=== PATIENT | female | born 1925 | race Caucasian/White ===

== ENCOUNTER 2017-03-22 12:20 | Observation (INO) | payer BC, OTHER ==
--- NOTE | 2017-03-22 12:28 | PDOC ---
History of Present Illness - General Chief Complaint: Pain Stated Complaint: URINARY SX, BACK PAIN, ABD PAIN Time Seen by Provider: 03/22/17 12:28 History Source: Patient, Care Provider, Family Exam Limitations: No Limitations - History of Present Illness Initial Comments: 03/22/17 16:16 89 yo female not feeling well c/o diffuse abdominal pain since Thanksgiving dinner. Most of her pain is epigastric but her belly hurts all over. She also noticed black stools and hematuria. Timing/Duration: 24 hours Severity: mild Modifying Factors: worse with: cold therapy, eating, immobilization, medication , movement, rest, other Associated Symptoms: denies: denies symptoms, chest pain, cough, diaphoresis, fever/chills, headaches, loss of appetite, malaise, nausea/vomiting, rash, seizure, shortness of breath, syncope, weakness, other Past History - Past Medical History Allergies/Adverse Reactions: Allergies Allergy/AdvReac Type Severity Reaction Status Date / Time No Known Allergies Allergy Verified 03/22/17 12:23 Home Medications: Ambulatory Orders Furosemide [Lasix -] 40 mg PO DAILY 10/23/12 Salmeterol/Fluticasone [Advair 250Mcg/50Mcg -] 1 inh IH BID 10/23/12 Calcium Acetate [Phoslo -] 667 mg PO DAILY 02/01/16 Escitalopram Oxalate [Lexapro -] 10 mg PO DAILY 02/01/16 Insulin Lispro [Humalog Kwikpen U-100] 0 unit SQ BID 02/01/16 Latanoprost 0.005% Eye Drops [Xalatan 0.005% Eye Drops -] 1 drop OU HS 02/01/16 Oxybutynin Chloride [Oxybutynin Chloride ER] 5 mg PO DAILY 02/01/16 Oxycodone HCl/Acetaminophen [Oxycodone-Acetaminophen 5-325] 1 each PO ASDIR PRN 02/01/16 Simvastatin 20 mg PO DAILY 02/01/16 Venlafaxine HCl ER [Effexor Xr -] 75 mg PO DAILY 02/01/16 Cardiac Disorders: Yes (ANGINA) CHF: Yes Diabetes: Yes GI Disorders: Yes (POLYPS(COLONIC)) - Suicide/Smoking/Psychosocial Hx Smoking Status: No Smoking History: Never smoked Have you smoked in the past 12 months: No Number of Cigarettes Smoked Daily: 0 Hx Alcohol Use: No Drug/Substance Use Hx: No Substance Use Type: None Hx Substance Use Treatment: No Review of Systems - Review of Systems Able to Perform ROS?: Yes Is the patient limited French proficient: No Constitutional: Yes: See HPI HEENTM: No: Symptoms Reported Respiratory: No: Symptoms reported Cardiac (ROS): No: Symptoms Reported ABD/GI: Yes: See HPI : Yes: See HPI Musculoskeletal: No: Symptoms Reported Integumentary: No: Symptoms Reported Neurological: No: Symptoms reported Psychiatric: No: Anxiety, Depression Endocrine: No: Symptoms Reported Hematologic/Lymphatic: No: Symptoms Reported All Other Systems: Reviewed and Negative *Physical Exam - Physical Exam General Appearance: Yes: Mild Distress HEENT: positive: Normal ENT Inspection, Normal Voice Neck: positive: Supple, Other (No JVD). negative: Lymphadenopathy (R), Lymphadenopathy (L) Respiratory/Chest: positive: Lungs Clear, Normal Breath Sounds Cardiovascular: positive: Regular Rhythm, Regular Rate. negative: Murmur Gastrointestinal/Abdominal: positive: Tender, Distended Rectal Exam: positive: heme negative stool Lymphatic: negative: Adenopathy, Tenderness Musculoskeletal: positive: Normal Inspection. negative: CVA Tenderness (R), CVA Tenderness (L) Extremity: positive: Normal Capillary Refill, Normal Inspection, Normal Range of Motion Integumentary: positive: Normal Color, Dry, Warm Neurologic: positive: Fully Oriented, Alert ED Treatment Course - LABORATORY CBC & Chemistry Diagram: 03/22/17 13:10 03/22/17 13:10 *DC/Admit/Observation/Transfer Diagnosis at time of Disposition: Gallstones, Positive Obando's Sign Hematuria Qualifiers: Hematuria type: gross Qualified Code(s): R31.0 - Gross hematuria Abdominal pain Qualifiers: Abdominal location: generalized Qualified Code(s): R10.84 - Generalized abdominal pain - Discharge Dispostion Condition at time of disposition: Stable Admit: Yes - Referrals Referrals: Jeffy Ball MD [Primary Care Provider] - - Patient Instructions - Post Discharge Activity
[2017-03-22 13:25] LABS: BASOPHIL 0.3 % (0-2.0); EOSINOPHIL 1.2 % (0-4.5); MCH 27.5 pg (25.7-33.7); MCHC 32.2 g/dl (32.0-36.0); MEAN CELL VOLUME 85.4 fl (80-96); MEAN PLT VOLUME 9.2 fl (7.5-11.1); NEUTROPHILS 77.2 % (42.8-82.8); PLATELET COUNT 249 K/MM3 (134-434); RDW 12.2 % (11.6-15.6); WHITE BLOOD COUNT 8.6 K/mm3 (4.0-10.8)
[2017-03-22 13:47] LABS: ALBUMIN 3.7 g/dl (3.5-5.0); ALK PHOS 75 U/L (32-92); ANION GAP 10 (8-16); BILIRUBIN,TOTAL 0.4 mg/dl (0.2-1.0); CALCIUM 9.4 mg/dl (8.4-10.2); CO2 23 mmol/L (22-28); CREATININE 1.5 mg/dl (0.6-1.3); GLUCOSE,RANDOM 228 mg/dl (74-106); SGOT/AST 21 U/L (10-42); SGPT/ALT 22 U/L (10-40); TOT PROT 6.6 g/dl (6.4-8.3)
[2017-03-22] MEDS ORDERED: HEMOQUE TEST 1 EACH EACH ONE (13:53)
[2017-03-22 14:09] LABS: INR 1.16 (0.82-1.09); PROTHROMBIN TIME (PATIENT) 12.9 SEC (10.2-13.0)
[2017-03-22 15:11] LABS: PH,URINE 5.5 (4.5-8); URINE APPEARANCE Clear; URINE BILIRUBIN Negative (NEGATIVE); URINE GLUCOSE (UA) Negative (NEGATIVE); URINE KETONE Negative (NEGATIVE); URINE LEUK ESTERASE Negative (NEGATIVE); URINE NITRITE Negative (NEGATIVE); URINE UROBILINOGEN 0.2 (0.2-1.0)
[2017-03-22 15:16] LABS: URINE BLOOD 1+ (NEGATIVE); URINE COLOR YELLOW; URINE PROTEIN 2+ (NEGATIVE)
[2017-03-22] MEDS ORDERED: morphine CARPU-JECT 4 MG/1 ML DISP.SYRIN IVPUSH ONE (15:49)
[2017-03-22] MEDS ORDERED: ONDANSETRON 4 MG/2 ML VIAL IVPUSH ONE (15:49)
[2017-03-22] MEDS ORDERED: ONDANSETRON 4 MG/2 ML VIAL ONE (15:59)
[2017-03-22] MEDS ORDERED: morphine SULFATE 4 MG/ML VIAL ONE (15:59)
[2017-03-22 17:50] VITALS: BMI 32.9
[2017-03-22 18:32] LABS: URINE WBC 0-3 (0-5)
[2017-03-22] MEDS ORDERED: SODIUM CHLORIDE 1,000 ML IV SCH (19:00)
--- NOTE | 2017-03-22 19:57 | HP ---
CHIEF COMPLAINT: "You are not feeding me." PCP: Dr. Ball HISTORY OF PRESENT ILLNESS: 89 year-old female with a PMH significant for IDDM, CKD, internal hemorrhoids, and bipolar disorder. Brought to the ED by her daughter as patient reporting diffuse abdominal pain since Thanksgiving dinner. Patient states an episode of "black," well-formed stool this morning. Daughter reports blood in patient's urine, but on further questioning, daughter observed bright red blood on chux pad underneath patient in bed. The patient's urine was yellow. Patient and daughter (both poor historians) deny patient has had nausea, vomiting, diarrhea , or constipation. They deny fever, sweats, chills. Deny chest pain, SOB, palpitations, HUNTER, or lower extremity edema. Daughter states patient has had generalized weakness for 2 weeks. Daughter states patient has suffered from "manic depression" for over 50 years. Saw a psychiatrist for years but never seemed to help. Patient has regularly scheduled appointment with PCP Dr. Ball on Saturday. ER course was notable for: (1) Cr 1.5 (baseline 1.4) (2) Stool occult negative Recent Travel: No PAST MEDICAL HISTORY: IDDM CKD Internal hemorrhoids Bipolar disorder PAST SURGICAL HISTORY: None reported Social History: Smoking: no Alcohol: no Drugs: no Family History: non-contributory Allergies No Known Allergies Allergy (Verified 03/22/17 12:23) HOME MEDICATIONS: Home Medications Medication Instructions Recorded Furosemide [Lasix -] 40 mg PO DAILY 10/23/12 Salmeterol/Fluticasone [Advair 1 inh IH BID 10/23/12 250Mcg/50Mcg -] Calcium Acetate [Phoslo -] 667 mg PO DAILY 02/01/16 Escitalopram Oxalate [Lexapro -] 10 mg PO DAILY 02/01/16 Insulin Lispro [Humalog Kwikpen 0 unit SQ BID 02/01/16 U-100] Latanoprost 0.005% Eye Drops 1 drop OU HS 02/01/16 [Xalatan 0.005% Eye Drops -] Oxybutynin Chloride [Oxybutynin 5 mg PO DAILY 02/01/16 Chloride ER] Oxycodone HCl/Acetaminophen 1 each PO ASDIR PRN 02/01/16 [Oxycodone-Acetaminophen 5-325] Simvastatin 20 mg PO DAILY 02/01/16 Venlafaxine HCl ER [Effexor Xr -] 75 mg PO DAILY 02/01/16 REVIEW OF SYSTEMS CONSTITUTIONAL: Absent: fever, chills, diaphoresis, generalized weakness, malaise, loss of appetite, weight change HEENT: Absent: rhinorrhea, nasal congestion, throat pain, throat swelling, difficulty swallowing, mouth swelling, ear pain, eye pain, visual changes CARDIOVASCULAR: Absent: chest pain, syncope, palpitations, irregular heart rate, lightheadedness , peripheral edema RESPIRATORY: Absent: cough, shortness of breath, dyspnea with exertion, orthopnea, wheezing, stridor, hemoptysis GASTROINTESTINAL: Present: abdominal discomfort x 1 day Absent: abdominal distension, nausea, vomiting, diarrhea, constipation, melena, hematochezia GENITOURINARY: Absent: dysuria, frequency, urgency, hesitancy, hematuria, flank pain, genital pain MUSCULOSKELETAL: Absent: myalgia, arthralgia, joint swelling, back pain, neck pain SKIN: Absent: rash, itching, pallor HEMATOLOGIC/IMMUNOLOGIC: Absent: easy bleeding, easy bruising, lymphadenopathy, frequent infections ENDOCRINE: Absent: unexplained weight gain, unexplained weight loss, heat intolerance, cold intolerance NEUROLOGIC: Absent: headache, focal weakness or paresthesias, dizziness, unsteady gait, seizure, mental status changes, bladder or bowel incontinence PSYCHIATRIC: Present: puma/depression x 50 years per daughter Absent: anxiety, depression, suicidal or homicidal ideation, hallucinations. PHYSICAL EXAMINATION Vital Signs - 24 hr 03/22/17 03/22/17 03/22/17 12:20 17:10 17:42 Temperature 98.7 F 98.1 F Pulse Rate 93 H Pulse Rate [ 79 Left Apical] Respiratory 18 16 16 Rate Blood Pressure 133/89 Blood Pressure 153/88 [Right Arm] O2 Sat by Pulse 97 96 96 Oximetry (%) GENERAL: Awake, alert, in no acute distress. HEAD: Normal with no signs of trauma. EYES: Pupils equal, round and reactive to light, extraocular movements intact, sclera anicteric, conjunctiva clear. Right ptosis. EARS, NOSE, THROAT: Ears normal, nares patent, oropharynx clear without exudates. Moist mucous membranes. NECK: Normal range of motion, supple without lymphadenopathy, JVD, or masses. LUNGS: Breath sounds equal, clear to auscultation bilaterally. No wheezes, and no crackles. No accessory muscle use. HEART: Regular rate and rhythm, normal S1 and S2 without murmur, rub or gallop. ABDOMEN: Soft, nontender, not distended, normoactive bowel sounds, no guarding, no rebound, no masses. No hepatomegaly or splenomegaly. MUSCULOSKELETAL: Normal range of motion at all joints. No bony deformities or tenderness. No CVA tenderness. UPPER EXTREMITIES: 2+ pulses, warm, well-perfused. No cyanosis. No clubbing. No peripheral edema. LOWER EXTREMITIES: 2+ pulses, warm, well-perfused. No calf tenderness. No peripheral edema. NEUROLOGICAL: Cranial nerves II-XII intact. Normal speech. Normal gait. PSYCHIATRIC: Cooperative. Good eye contact. Appropriate mood and affect. SKIN: Warm, dry, normal turgor, no rashes or lesions noted, normal capillary refill. Laboratory Results - last 24 hr 03/22/17 03/22/17 03/22/17 13:10 13:10 13:10 WBC 8.6 RBC 5.17 Hgb 14.2 Hct 44.1 MCV 85.4 MCH 27.5 MCHC 32.2 RDW 12.2 D Plt Count 249 MPV 9.2 Neutrophils % 77.2 Lymphocytes % 17.4 Monocytes % 3.9 Eosinophils % 1.2 Basophils % 0.3 PT with INR 12.9 INR 1.16 Sodium 137 Potassium 4.0 Chloride 104 Carbon Dioxide 23 Anion Gap 10 BUN 33 H D Creatinine 1.5 H Creat Clearance w eGFR 32.70 POC Glucometer Random Glucose 228 H D Calcium 9.4 Total Bilirubin 0.4 D AST 21 D ALT 22 D Alkaline Phosphatase 75 Total Protein 6.6 Albumin 3.7 Lipase 36 Urine Color Urine Appearance Urine pH Ur Specific [place] Urine Protein Urine Glucose (UA) Urine Ketones Urine Blood Urine Nitrite Urine Bilirubin Urine Urobilinogen Ur Leukocyte Esterase Urine RBC Urine WBC Ur Epithelial Cells Amorphous Urates Stool Occult Blood Blood Type Antibody Screen 03/22/17 03/22/17 03/22/17 13:10 13:11 14:50 WBC RBC Hgb Hct MCV MCH MCHC RDW Plt Count MPV Neutrophils % Lymphocytes % Monocytes % Eosinophils % Basophils % PT with INR INR Sodium Potassium Chloride Carbon Dioxide Anion Gap BUN Creatinine Creat Clearance w eGFR POC Glucometer Random Glucose Calcium Total Bilirubin AST ALT Alkaline Phosphatase Total Protein Albumin Lipase Urine Color Yellow Urine Appearance Clear Urine pH 5.5 Ur Specific [place] 1.020 Urine Protein 2+ H Urine Glucose (UA) Negative Urine Ketones Negative Urine Blood 1+ H Urine Nitrite Negative Urine Bilirubin Negative Urine Urobilinogen 0.2 Ur Leukocyte Esterase Negative Urine RBC 4-6 Urine WBC 0-3 Ur Epithelial Cells 0-3 Amorphous Urates Few Stool Occult Blood Negative Blood Type A POSITIVE Antibody Screen Negative 03/22/17 17:40 WBC RBC Hgb Hct MCV MCH MCHC RDW Plt Count MPV Neutrophils % Lymphocytes % Monocytes % Eosinophils % Basophils % PT with INR INR Sodium Potassium Chloride Carbon Dioxide Anion Gap BUN Creatinine Creat Clearance w eGFR POC Glucometer 143 Random Glucose Calcium Total Bilirubin AST ALT Alkaline Phosphatase Total Protein Albumin Lipase Urine Color Urine Appearance Urine pH Ur Specific [place] Urine Protein Urine Glucose (UA) Urine Ketones Urine Blood Urine Nitrite Urine Bilirubin Urine Urobilinogen Ur Leukocyte Esterase Urine RBC Urine WBC Ur Epithelial Cells Amorphous Urates Stool Occult Blood Blood Type Antibody Screen ASSESSMENT/PLAN: 89 year-old female with a PMH significant for IDDM, CKD, internal hemorrhoids, and bipolar disorder. Placed on observation for diffuse abdominal discomfort folloiwng Thanksgiving dinner. Also with BRBPR. Abdominal pain --03/22 Abdominal xray: gallstones v. right renal calcifications --03/22 US abdomen: slightly overdistended gallbladder with intraluminal stones and small amount of sludge, without wall thickening or free fluid; + sonographic evidence of Obando's sign --LFTs wnl --ordered CTAP with PO and IV contrast to r/o cholecystitis --NPO IDDM --Novolog sliding scale coverage CKD --Cr 1.5, close to baseline 1.4 --gentle IV fluids Internal hemorrhoids --BRBPR seen by daughter is consistent with findings on colonoscopy 01/2016 of large internal hemorrhoids --stool occult negative; h/h stable Bipolar disorder --continue Lexapro, Effexor FEN Fluids: NS @ 75mL/hr Electrolytes: replete as indicated Nutrition: NPO DVT prophylaxis: subq heparin Dispo: continues to require observation. Full code. Visit type - Emergency Visit Emergency Visit: Yes ED Registration Date: 03/22/17 Care time: The patient presented to the Emergency Department on the above date and was hospitalized for further evaluation of their emergent condition. - New Patient This patient is new to me today: Yes Date on this admission: 03/23/17 - Critical Care Critical Care patient: No
[2017-03-22] MEDS: ESCITALOPRAM OXALATE 10 MG TABLET (FP) PO SCH (20:04)
[2017-03-22] MEDS: VENLAFAXINE HCL 75 MG E.R. CAPSULES (FP) PO SCH (20:04)
[2017-03-22] MEDS: OXYBUTYNIN CHLORIDE 5 MG TABLET PO SCH (20:04)
[2017-03-22] MEDS: ATORVASTATIN CA 20 MG TABLET (FP) PO SCH (20:04)
[2017-03-22] MEDS ORDERED: BUDESONIDE/FORMETEROL FUMARATE 80/4.5 mcg INHALER IH SCH (22:00)
[2017-03-22 22:05] LABS: TROPONIN I (DFP) 0.03 ng/ml (0.03-0.50)
[2017-03-22] MEDS: BUDESONIDE/FORMETEROL FUMARATE 80/4.5 mcg INHALER IH SCH (22:59)
[2017-03-22] MEDS: LATANOPROST 0.005% OPHTH SOLN 2.5ML BOTTLE OU SCH (23:00)
[2017-03-22] MEDS ORDERED: PT OWN MED DRAWER 7, Y5N ONE (23:04)
[2017-03-23] MEDS ORDERED: INSULIN (NOVOLOG) ASPART 100 UNITS/ML 10ML VIAL ONE ×4 (06:46→22:33)
[2017-03-23] MEDS: INSULIN SLIDING SCALE (NOVOLOG) 1 VIAL SQ SCH ×4 (06:48→22:34)
[2017-03-23 07:18] LABS: BASOPHIL 0.4 % (0-2.0); MCH 27.9 pg (25.7-33.7); MCHC 32.4 g/dl (32.0-36.0); MEAN CELL VOLUME 86.2 fl (80-96); MEAN PLT VOLUME 8.8 fl (7.5-11.1); NEUTROPHILS 58.9 % (42.8-82.8); PLATELET COUNT 199 K/MM3 (134-434); RDW 13.2 % (11.6-15.6); WHITE BLOOD COUNT 6.6 K/mm3 (4.0-10.8)
[2017-03-23 07:58] LABS: ALK PHOS 59 U/L (32-92); ANION GAP 6 (8-16); BILIRUBIN,TOTAL 0.5 mg/dl (0.2-1.0); CALCIUM 8.5 mg/dl (8.4-10.2); CO2 23 mmol/L (22-28); CREATININE 1.4 mg/dl (0.6-1.3); GLUCOSE,RANDOM 195 mg/dl (74-106); SGOT/AST 17 U/L (10-42); SGPT/ALT 17 U/L (10-40); TOT PROT 5.6 g/dl (6.4-8.3)
[2017-03-23 08:48] LABS: MAGNESIUM 1.9 mg/dL (1.8-2.4); PHOSPHOROUS 3.4 mg/dL (2.5-4.9)
[2017-03-23] MEDS: BUDESONIDE/FORMETEROL FUMARATE 80/4.5 mcg INHALER IH SCH ×2 (09:17→21:54)
[2017-03-23] MEDS ORDERED: PT OWN MED DRAWER 7, Y5N ONE ×3 (09:18→22:13)
[2017-03-23] MEDS: VENLAFAXINE HCL 75 MG E.R. CAPSULES (FP) PO SCH (09:20)
[2017-03-23] MEDS: FUROSEMIDE 40 MG TABLET (FP) PO SCH (09:20)
[2017-03-23] MEDS: ATORVASTATIN CA 20 MG TABLET (FP) PO SCH (09:20)
[2017-03-23] MEDS: OXYBUTYNIN CHLORIDE 5 MG TABLET PO SCH (09:20)
[2017-03-23] MEDS: ESCITALOPRAM OXALATE 10 MG TABLET (FP) PO SCH (09:20)
[2017-03-23 11:17] LABS: INR 1.18 (0.82-1.09); PROTHROMBIN TIME (PATIENT) 13.3 SEC (9.98-11.88)
[2017-03-23] MEDS: HEPARIN NA (PORCINE) 5,000 UNITS/ML 1ML VIAL SQ SCH ×2 (13:38→21:53)
--- NOTE | 2017-03-23 14:09 | PN ---
Physical Exam: SUBJECTIVE: Patient seen and examined. OBJECTIVE: Vital Signs Period Temp Pulse Resp BP Sys/[place] Pulse Ox Last 24 Hr 98.0 F-98.3 F 61-85 16-18 141-160/61-89 96-97 GENERAL: The patient is awake, alert, and fully oriented, in no acute distress. HEAD: Normal with no signs of trauma. EYES: PERRL, extraocular movements intact, sclera anicteric, conjunctiva clear. No ptosis. ENT: Ears normal, nares patent, oropharynx clear without exudates, moist mucous membranes. NECK: Trachea midline, full range of motion, supple. LUNGS: Breath sounds equal, clear to auscultation bilaterally, no wheezes, no crackles, no accessory muscle use. HEART: Regular rate and rhythm, S1, S2 without murmur, rub or gallop. ABDOMEN: Soft, nontender, nondistended, normoactive bowel sounds, no guarding, no rebound, no hepatosplenomegaly, no masses. EXTREMITIES: 2+ pulses, warm, well-perfused, no edema. NEUROLOGICAL: Cranial nerves II through XII grossly intact. Normal speech, gait steady. PSYCH: Normal mood, normal affect. SKIN: Warm, dry, normal turgor, no rashes or lesions noted Laboratory Results - last 24 hr 03/22/17 03/22/17 03/22/17 13:10 13:10 14:50 WBC RBC Hgb Hct MCV MCH MCHC RDW Plt Count MPV Neutrophils % Lymphocytes % Monocytes % Eosinophils % Basophils % PT with INR 12.9 INR 1.16 PTT (Actin FS) Sodium Potassium Chloride Carbon Dioxide Anion Gap BUN Creatinine Creat Clearance w eGFR POC Glucometer Random Glucose Calcium Phosphorus Magnesium Total Bilirubin AST ALT Alkaline Phosphatase Creatine Kinase Troponin I Total Protein Albumin Lipase Urine Color Yellow Urine Appearance Clear Urine pH 5.5 Ur Specific [place] 1.020 Urine Protein 2+ H Urine Glucose (UA) Negative Urine Ketones Negative Urine Blood 1+ H Urine Nitrite Negative Urine Bilirubin Negative Urine Urobilinogen 0.2 Ur Leukocyte Esterase Negative Urine RBC 4-6 Urine WBC 0-3 Ur Epithelial Cells 0-3 Amorphous Urates Few Blood Type A POSITIVE Antibody Screen Negative 03/22/17 03/22/17 03/22/17 17:40 21:00 21:00 WBC RBC Hgb Hct MCV MCH MCHC RDW Plt Count MPV Neutrophils % Lymphocytes % Monocytes % Eosinophils % Basophils % PT with INR INR PTT (Actin FS) Sodium Potassium Chloride Carbon Dioxide Anion Gap BUN Creatinine Creat Clearance w eGFR POC Glucometer 143 Random Glucose Calcium Phosphorus Magnesium Total Bilirubin AST ALT Alkaline Phosphatase Creatine Kinase 62 Troponin I 0.03 Total Protein Albumin Lipase 25 Urine Color Urine Appearance Urine pH Ur Specific [place] Urine Protein Urine Glucose (UA) Urine Ketones Urine Blood Urine Nitrite Urine Bilirubin Urine Urobilinogen Ur Leukocyte Esterase Urine RBC Urine WBC Ur Epithelial Cells Amorphous Urates Blood Type Antibody Screen 03/22/17 03/23/17 03/23/17 23:06 06:41 07:00 WBC RBC Hgb Hct MCV MCH MCHC RDW Plt Count MPV Neutrophils % Lymphocytes % Monocytes % Eosinophils % Basophils % PT with INR INR PTT (Actin FS) Sodium 139 Potassium 4.4 Chloride 110 H Carbon Dioxide 23 Anion Gap 6 L BUN 26 H D Creatinine 1.4 H Creat Clearance w eGFR 35.41 POC Glucometer 240 167 Random Glucose 195 H Calcium 8.5 Phosphorus Magnesium Total Bilirubin 0.5 D AST 17 ALT 17 D Alkaline Phosphatase 59 D Creatine Kinase Troponin I Total Protein 5.6 L Albumin 3.0 L Lipase Urine Color Urine Appearance Urine pH Ur Specific [place] Urine Protein Urine Glucose (UA) Urine Ketones Urine Blood Urine Nitrite Urine Bilirubin Urine Urobilinogen Ur Leukocyte Esterase Urine RBC Urine WBC Ur Epithelial Cells Amorphous Urates Blood Type Antibody Screen 03/23/17 03/23/17 03/23/17 07:00 07:00 07:00 WBC 6.6 RBC 4.62 Hgb 12.9 Hct 39.8 MCV 86.2 MCH 27.9 MCHC 32.4 RDW 13.2 Plt Count 199 D MPV 8.8 Neutrophils % 58.9 D Lymphocytes % 29.1 D Monocytes % 8.6 D Eosinophils % 3.0 D Basophils % 0.4 PT with INR 13.30 H INR 1.18 H PTT (Actin FS) 26.5 Sodium Potassium Chloride Carbon Dioxide Anion Gap BUN Creatinine Creat Clearance w eGFR POC Glucometer Random Glucose Calcium Phosphorus Magnesium Total Bilirubin AST ALT Alkaline Phosphatase Creatine Kinase Troponin I Total Protein Albumin Lipase Urine Color Urine Appearance Urine pH Ur Specific [place] Urine Protein Urine Glucose (UA) Urine Ketones Urine Blood Urine Nitrite Urine Bilirubin Urine Urobilinogen Ur Leukocyte Esterase Urine RBC Urine WBC Ur Epithelial Cells Amorphous Urates Blood Type Antibody Screen 03/23/17 03/23/17 03/23/17 07:00 07:00 11:11 WBC RBC Hgb Hct MCV MCH MCHC RDW Plt Count MPV Neutrophils % Lymphocytes % Monocytes % Eosinophils % Basophils % PT with INR INR PTT (Actin FS) Sodium Potassium Chloride Carbon Dioxide Anion Gap BUN Creatinine Creat Clearance w eGFR POC Glucometer 219 Random Glucose Calcium Phosphorus 3.4 Magnesium 1.9 Total Bilirubin AST ALT Alkaline Phosphatase Creatine Kinase Troponin I 0.02 Total Protein Albumin Lipase Urine Color Urine Appearance Urine pH Ur Specific [place] Urine Protein Urine Glucose (UA) Urine Ketones Urine Blood Urine Nitrite Urine Bilirubin Urine Urobilinogen Ur Leukocyte Esterase Urine RBC Urine WBC Ur Epithelial Cells Amorphous Urates Blood Type Antibody Screen Active Medications Generic Name Dose Route Start Last Admin Trade Name Freq PRN Reason Stop Dose Admin Atorvastatin Calcium 20 mg 03/22/17 19:00 03/23/17 09:20 Lipitor - PO 20 mg DAILY BRITTANY Administration Budesonide/Formoterol Fumarate 2 puff 03/22/17 22:00 03/23/17 09:17 Symbicort 80/4.5mcg - IH 2 puff BID BRITTANY Administration Escitalopram Oxalate 10 mg 03/22/17 19:00 03/23/17 09:20 Lexapro - PO 10 mg DAILY BRITTANY Administration Furosemide 40 mg 03/23/17 10:00 03/23/17 09:20 Lasix - PO 40 mg DAILY BRITTANY Administration Heparin Sodium (Porcine) 5,000 unit 03/23/17 14:00 03/23/17 13:38 Heparin - SQ 5,000 unit TID BRITTANY Administration Sodium Chloride 1,000 mls @ 75 mls/hr 03/22/17 19:00 03/22/17 20:06 Normal Saline - IV 75 mls/hr ASDIR BRITTANY Administration Insulin Aspart 1 vial 03/23/17 07:00 03/23/17 11:21 Novolog Vial Sliding Scale - SQ 4 units ACHS BRITTANY Administration Protocol Latanoprost 1 drop 03/22/17 22:00 03/22/17 23:00 Xalatan 0.005% Eye Drops - OU 1 drop HS BRITTANY Administration Oxybutynin Chloride 5 mg 03/22/17 19:00 03/23/17 09:20 Ditropan - PO 5 mg DAILY BRITTANY Administration Venlafaxine HCl 75 mg 03/22/17 19:00 03/23/17 09:20 Effexor Xr - PO 75 mg DAILY BRITTANY Administration Imaging: Right upper abdomen ultrasound. Compared to prior CT scan of the abdomen pelvis dated 01/20/2016 The liver is within normal limits in size with a slightly dense and coarse echotexture. Gallbladder is adequately distended measuring 10 x 4.7 cm in sagittal and AP dimension with intraluminal stones and a sludge seen layering posteriorly. There is no thickening of its wall or pericholecystic free fluid. Fraud Analyst reports a positive Obando's sign no intra or extrahepatic bile duct dilatation is seen. The right kidney measures 11 cm in sagittal length with prominent central sinus echoes and cortical thinning compatible with central sinus lipomatosis. Limited visualization of the pancreas. Visualized portion of the pancreatic head and body appear unremarkable Visualized portion of the proximal abdominal aorta and inferior vena cava appear unremarkable. Normal flow in the main portal vein. IMPRESSION: Mild fatty infiltration of the liver versus hepatocellular disease. Please correlate with liver enzymes. Limited visualization of the pancreas. Slightly over distended gallbladder with intraluminal stones and small sludge and without sonographic evidence of acute cholecystitis. However, ceramic designer reported positive Obando's sign. Correlate clinically for further evaluation. Right renal sinus lipomatosis Reported By: Zully Calero MD 03/22/[address]/ABDOMEN PELVIS CT WITH CONTR HISTORY PROVIDED: Follow-up. Sequential axial images were obtained from the domes of the diaphragms through the symphysis pubis following the administration of intravenous contrast material. Evaluation of the lung bases demonstrates atelectatic changes bilaterally, right greater than left. The heart is enlarged. The liver, spleen, pancreas, adrenal glands and kidneys demonstrate no significant abnormalities. The gallbladder is mildly distended. Gallstones are identified within the gallbladder. There is no CT evidence of acute cholecystitis. If this is clinically suspected, a follow-up HIDA scan may be warranted. There is no evidence of intra-abdominal or retroperitoneal lymphadenopathy or fluid collections. There is no evidence of pneumoperitoneum, bowel obstruction or intra-abdominal abscess. There is no CT evidence of acute appendicitis or diverticulitis. Examination of the pelvis demonstrates no evidence of pelvic masses, fluid collections or lymphadenopathy. There is no evidence of acute bony pathology. IMPRESSION: Cholelithiasis, no acute pathology within the abdomen or pelvis. Please see above discussion. Reported By: Lowell Pete MD 03/23/17 1331 ASSESSMENT/PLAN: 89 year-old female with a PMH significant for IDDM, CKD, internal hemorrhoids, and bipolar disorder. Placed on observation for diffuse abdominal discomfort folloiwng Thanksgiving dinner. Also with BRBPR. Abdominal pain - LFTs wnl IDDM - FS qACHS - Novolog sliding scale coverage CKD - Cr 1.5, close to baseline 1.4 - gentle IV fluids s/p IV contrast Internal hemorrhoids - no active bleeding - stool occult negative - h/h stable Bipolar disorder - continue Lexapro, Effexor FEN - Low Na diet - NS@75cc/hr PPX - sqh Dispo- d/c in am. Code Status- Full code. Visit type - Emergency Visit Emergency Visit: Yes ED Registration Date: 03/22/17 Care time: The patient presented to the Emergency Department on the above date and was hospitalized for further evaluation of their emergent condition. - New Patient This patient is new to me today: Yes Date on this admission: 03/23/17 - Critical Care Critical Care patient: No
[2017-03-23] MEDS: ACETAMINOPHEN 325 MG TABLET (FP) PO PRN (16:57)
[2017-03-23] MEDS: LATANOPROST 0.005% OPHTH SOLN 2.5ML BOTTLE OU SCH (21:54)
[2017-03-24 06:53] VITALS: BP 152/96; PULSE 69; TEMP 98.1
[2017-03-24] MEDS: HEPARIN NA (PORCINE) 5,000 UNITS/ML 1ML VIAL SQ SCH (07:00)
[2017-03-24] MEDS: INSULIN SLIDING SCALE (NOVOLOG) 1 VIAL SQ SCH (07:21)
[2017-03-24] MEDS: ACETAMINOPHEN 325 MG TABLET (FP) PO PRN (08:33)
--- NOTE | 2017-03-24 08:51 | PN ---
Physical Exam: SUBJECTIVE: Patient seen and examined OBJECTIVE: Vital Signs Period Temp Pulse Resp BP Sys/Moffett Pulse Ox Last 24 Hr 98.1 F-98.5 F 68-83 19-20 123-152/64-96 98-99 GENERAL: The patient is awake, alert, and fully oriented, in no acute distress. HEAD: Normal with no signs of trauma. EYES: PERRL, extraocular movements intact, sclera anicteric, conjunctiva clear. No ptosis. ENT: Ears normal, nares patent, oropharynx clear without exudates, moist mucous membranes. NECK: Trachea midline, full range of motion, supple. LUNGS: Breath sounds equal, clear to auscultation bilaterally, no wheezes, no crackles, no accessory muscle use. HEART: Regular rate and rhythm, S1, S2 without murmur, rub or gallop. ABDOMEN: Soft, nontender, nondistended, normoactive bowel sounds, no guarding, no rebound, no hepatosplenomegaly, no masses. EXTREMITIES: 2+ pulses, warm, well-perfused, no edema. NEUROLOGICAL: Cranial nerves II through XII grossly intact. Normal speech, gait not observed. PSYCH: Normal mood, normal affect. SKIN: Warm, dry, normal turgor, no rashes or lesions noted Laboratory Results - last 24 hr 03/23/17 03/23/17 03/23/17 07:00 07:00 11:11 PT with INR 13.30 H INR 1.18 H POC Glucometer 219 Phosphorus 3.4 Magnesium 1.9 Troponin I 03/23/17 03/23/17 03/23/17 12:00 16:49 21:56 PT with INR INR POC Glucometer 174 204 Phosphorus Magnesium Troponin I 0.03 03/24/17 06:48 PT with INR INR POC Glucometer 128 Phosphorus Magnesium Troponin I Active Medications Generic Name Dose Route Start Last Admin Trade Name Freq PRN Reason Stop Dose Admin Acetaminophen 650 mg 03/23/17 16:40 03/24/17 08:33 Tylenol - PO 650 mg Q4H PRN Administration FEVER OR PAIN Atorvastatin Calcium 20 mg 03/22/17 19:00 03/23/17 09:20 Lipitor - PO 20 mg DAILY BRITTANY Administration Budesonide/Formoterol Fumarate 2 puff 03/22/17 22:00 03/23/17 21:54 Symbicort 80/4.5mcg - IH 2 puff BID BRITTANY Administration Escitalopram Oxalate 10 mg 03/22/17 19:00 03/23/17 09:20 Lexapro - PO 10 mg DAILY BRITTANY Administration Furosemide 40 mg 03/23/17 10:00 03/23/17 09:20 Lasix - PO 40 mg DAILY BRITTANY Administration Heparin Sodium (Porcine) 5,000 unit 03/23/17 14:00 03/24/17 07:00 Heparin - SQ 5,000 unit TID BRITTANY Administration Sodium Chloride 1,000 mls @ 75 mls/hr 03/22/17 19:00 03/22/17 20:06 Normal Saline - IV 75 mls/hr ASDIR BRITTANY Administration Insulin Aspart 1 vial 03/23/17 07:00 03/24/17 07:21 Novolog Vial Sliding Scale - SQ Not Given ACHS BRITTANY Protocol Latanoprost 1 drop 03/22/17 22:00 03/23/17 21:54 Xalatan 0.005% Eye Drops - OU 1 drop HS BRITTANY Administration Oxybutynin Chloride 5 mg 03/22/17 19:00 03/23/17 09:20 Ditropan - PO 5 mg DAILY BRITTANY Administration Venlafaxine HCl 75 mg 03/22/17 19:00 03/23/17 09:20 Effexor Xr - PO 75 mg DAILY BRITTANY Administration Imaging: Right upper abdomen ultrasound. Mild fatty infiltration of the liver versus hepatocellular disease. Please correlate with liver enzymes. Limited visualization of the pancreas. Slightly over distended gallbladder with intraluminal stones and small sludge and without sonographic evidence of acute cholecystitis. However, traffic court referee reported positive Obando's sign. Correlate clinically for further evaluation. Right renal sinus lipomatosis Reported By: Zully Calero MD 03/22/[address]/ABDOMEN PELVIS CT WITH CONTR HISTORY PROVIDED: Cholelithiasis, no acute pathology within the abdomen or pelvis. Please see above discussion. Reported By : Lowell Pete MD 03/23/17 1331 ASSESSMENT/PLAN: Pt remains clinically stable, reports abdominal pain resolved, diet tolerated well, will DC pt home today. Visit type - Emergency Visit Emergency Visit: Yes ED Registration Date: 03/22/17 Care time: The patient presented to the Emergency Department on the above date and was hospitalized for further evaluation of their emergent condition. - New Patient This patient is new to me today: Yes Date on this admission: 03/24/17 - Critical Care Critical Care patient: No
[2017-03-24] MEDS ORDERED: PT OWN MED DRAWER 7, Y5N ONE (09:50)
[2017-03-24] MEDS: OXYBUTYNIN CHLORIDE 5 MG TABLET PO SCH (09:51)
[2017-03-24] MEDS: FUROSEMIDE 40 MG TABLET (FP) PO SCH (09:51)
[2017-03-24] MEDS: BUDESONIDE/FORMETEROL FUMARATE 80/4.5 mcg INHALER IH SCH (09:51)
[2017-03-24] MEDS: ESCITALOPRAM OXALATE 10 MG TABLET (FP) PO SCH (09:51)
[2017-03-24] MEDS: VENLAFAXINE HCL 75 MG E.R. CAPSULES (FP) PO SCH (09:51)
[2017-03-24] MEDS: ATORVASTATIN CA 20 MG TABLET (FP) PO SCH (09:51)
--- NOTE | 2017-03-24 14:16 | DS ---
Physical Exam: SUBJECTIVE: Patient seen and examined OBJECTIVE: Vital Signs Period Temp Pulse Resp BP Sys/Moffett Pulse Ox Last 24 Hr 98.1 F-98.5 F 68-83 19-20 123-152/64-96 98-99 PHYSICAL EXAM GENERAL: The patient is awake, alert, and fully oriented, in no acute distress. HEAD: Normal with no signs of trauma. EYES: PERRL, extraocular movements intact, sclera anicteric, conjunctiva clear. ENT: Ears normal, nares patent, oropharynx clear without exudates, moist mucous membranes. NECK: Trachea midline, full range of motion, supple. LUNGS: Breath sounds equal, clear to auscultation bilaterally, no wheezes, no crackles, no accessory muscle use. HEART: Regular rate and rhythm, S1, S2 without murmur, rub or gallop. ABDOMEN: Soft, nontender, nondistended, normoactive bowel sounds, no guarding, no rebound, no hepatosplenomegaly, no masses. EXTREMITIES: 2+ pulses, warm, well-perfused, no edema. NEUROLOGICAL: Cranial nerves II through XII grossly intact. Normal speech, gait not observed. PSYCH: Normal mood, normal affect. SKIN: Warm, dry, normal turgor, no rashes or lesions noted. LABS Laboratory Results - last 24 hr 03/23/17 03/23/17 03/23/17 12:00 16:49 21:56 POC Glucometer 174 204 Troponin I 0.03 03/24/17 06:48 POC Glucometer 128 Troponin I * IMAGING Right upper abdomen ultrasound. Mild fatty infiltration of the liver versus hepatocellular disease. Please correlate with liver enzymes. Limited visualization of the pancreas. Slightly over distended gallbladder with intraluminal stones and small sludge and without sonographic evidence of acute cholecystitis. However, field counsel reported positive Obando's sign. Correlate clinically for further evaluation. Right renal sinus lipomatosis. CT/ABDOMEN PELVIS CT WITH CONTR HISTORY PROVIDED: Cholelithiasis, no acute pathology within the abdomen or pelvis. Please see above discussion. Reported By : Lowell Pete MD 03/23/17 5269 HOSPITAL COURSE: Date of Admission:03/22/17 Date of Discharge: 03/24/17 This is an 89 year-old female with a PMH significant for IDDM, CKD, internal hemorrhoids, and bipolar disorder. Placed on observation for diffuse abdominal discomfort after Thanksgiving dinner and also reports BRBPR. Imaging ruled out acute pathology.Lab revealed normal LFTs.s diet tolerated well, abdominal pain resolved. *Hx of IDDM: BS stable, will continue on home dose Insulin and recommend to monitor blood glucose at home and resume consistent carbohydrate diet. *CKD: In ER lab revealed mildly abnormal Cre 1.5(baseline 1.4), pt received IV hydration with improvement * Recatl bleeding likely due to internal hemorrhoids,no active bleeding noted, stool occult negative. CBC stable. *Hx of Bipolar disorder: Will continue Lexapro, Effexor Minutes to complete discharge: 40 Discharge Summary Reason For Visit: GALLSTONES,HEMATURIA,ABD PAIN Condition: Stable - Instructions Diet, Activity, Other Instructions: Sodium controlled diet Referrals: Jeffy Ball MD [Primary Care Provider] - Disposition: HOME - Home Medications Comprehensive Discharge Medication List: Ambulatory Orders Furosemide [Lasix -] 40 mg PO DAILY 10/23/12 Salmeterol/Fluticasone [Advair 250Mcg/50Mcg -] 1 inh IH BID 10/23/12 Calcium Acetate [Phoslo -] 667 mg PO DAILY 02/01/16 Escitalopram Oxalate [Lexapro -] 10 mg PO DAILY 02/01/16 Insulin Lispro [Humalog Kwikpen U-100] 0 unit SQ BID 02/01/16 Latanoprost 0.005% Eye Drops [Xalatan 0.005% Eye Drops -] 1 drop OU HS 02/01/16 Oxybutynin Chloride [Oxybutynin Chloride ER] 5 mg PO DAILY 02/01/16 Oxycodone HCl/Acetaminophen [Oxycodone-Acetaminophen 5-325] 1 each PO ASDIR PRN 02/01/16 Simvastatin 20 mg PO DAILY 02/01/16 Venlafaxine HCl ER [Effexor Xr -] 75 mg PO DAILY 02/01/16 Acetaminophen [Tylenol .Regular Strength -] 650 mg PO Q4H PRN tablet 03/24/17 This patient is new to me today: Yes Date on this admission: 03/24/17 Emergency Visit: Yes ED Registration Date: 03/22/17 Care time: The patient presented to the Emergency Department on the above date and was hospitalized for further evaluation of their emergent condition. Critical Care patient: No - Discharge Referral Referred to [facility] Med [facility] No
--- NOTE | 2017-03-26 08:54 | EKG ---
Test Reason : Blood Pressure : / mmHG Vent. Rate : 077 BPM Atrial Rate : 077 BPM P-R Int : 292 ms QRS Dur : 118 ms QT Int : 416 ms P-R-T Axes : 064 -57 012 degrees QTc Int : 470 ms SINUS RHYTHM WITH 1ST DEGREE A-V BLOCK LEFT AXIS DEVIATION RIGHT BUNDLE BRANCH BLOCK INFERIOR INFARCT , AGE UNDETERMINED CANNOT RULE OUT ANTERIOR INFARCT , AGE UNDETERMINED ABNORMAL ECG WHEN COMPARED WITH ECG OF 01-MAR-2011 12:45, QRS AXIS SHIFTED LEFT POSSIBLE ANTERIOR INFARCT IS NOW PRESENT INFERIOR INFARCT IS NOW PRESENT Confirmed by KEAGAN THRASHER, RANDY ([id number]) on 03/26/2017 8:54:01 AM Referred By: Benitez Estrada Confirmed By:RANDY BOOGIE MD
== END 2017-03-24 11:44 | disposition home or self-care (01) ==
LOC: FER 12:20 → INTOOBSV 16:55 → FM/S 16:55 → UNDOADMOB 16:55 → FM/S 18:56
PROVIDERS: ADMIT Internal Medicine; ATTEND Nurse Practitioner Family
PROC: 3E033NZ Introduction of Analgesics, Hypnotics, Sedatives into Peripheral Vein, Percutaneous Approach (ICD-10-PCS; principal; 2017-03-22)
PROC: 3E0337Z Introduction of Electrolytic and Water Balance Substance into Peripheral Vein, Percutaneous Approach (ICD-10-PCS; 2017-03-22)
PROC: 3E033GC Introduction of Other Therapeutic Substance into Peripheral Vein, Percutaneous Approach (ICD-10-PCS; 2017-03-22)
PROC: 3E013GC Introduction of Other Therapeutic Substance into Subcutaneous Tissue, Percutaneous Approach (ICD-10-PCS; 2017-03-22)
PROC: 3E0F7GC Introduction of Other Therapeutic Substance into Respiratory Tract, Via Natural or Artificial Opening (ICD-10-PCS; 2017-03-22)
DX: K80.80 Other cholelithiasis without obstruction (principal); R31.0 Gross hematuria; R10.84 Generalized abdominal pain; E11.9 Type 2 diabetes mellitus without complications; K92.1 Melena; I50.9 Heart failure, unspecified; Z79.4 Long term (current) use of insulin; E11.22 Type 2 diabetes mellitus with diabetic chronic kidney disease; N18.9 Chronic kidney disease, unspecified; K64.8 Other hemorrhoids
CPT/HCPCS: 36415; 71010-TC; 74020-TC; 74177-TC; 76705-TC; 80053; 81003; 81015; 82272; 82550; 83605; 83690; 83735; 84100; 84484; 85025; 85610; 85730; 86850; 86900; 86901; 87040; 87086; 93005; 99284-25; G0378; J1644